=== PATIENT | female | born 1945 | race Caucasian/White ===

== ENCOUNTER 2020-10-14 07:20 | Day surgery (SDC) | payer MEDICARE, BC ==
[~2020-10-14 07:20] MED LIST: Lactated Ringers 1,000 ML IV SCH; Lidocaine 1%/Sod Bicarbonate in NS 8.4% 1 ML Syringe IDERM PRN; Sodium Chloride 0.9% 10 ML Syringe FLUSH PRN
--- NOTE | 2020-10-14 08:05 | PCM.PREANE ---
Preanesthetic Assessment - Procedure Proposed Procedure: colonoscopy - Anesthesia/Transfusion/Family Hx Anesthesia History: Prior Anesthesia Without Reaction Family History of Anesthesia Reaction: No Transfusion History: Unknown Intubation History: Unknown - Review of Systems General: No Symptoms Pulmonary: No Symptoms Cardiovascular: No Symptoms Gastrointestinal: Diarrhea Neurological: No Symptoms Other: Reports: None - Physical Assessment NPO Status Date: 10/14/20 NPO Status Time: 19:00 Height: 1.65 m Weight: 105 kg ASA Class: 3 Mental Status: Alert & Oriented x3 Dentition: Reports: Normal Dentition (permanent bridge ) ROM/Head Extension: Limited/Partial Lungs: Clear to Auscultation, Normal Respiratory Effort Cardiovascular: Regular Rate, Regular Rhythm - Allergies Allergies/Adverse Reactions: Allergies Allergy/AdvReac Type Severity Reaction Status Date / Time Sulfa (Sulfonamide Allergy Cannot Verified 10/14/20 07:56 Antibiotics) Remember tetanus and diphtheria Allergy Cannot Verified 10/14/20 07:56 toxoids Remember - Blood Blood Available: No - Anesthesia Plan Pre-Op Medication Ordered: None Beta Chrystal: Metoprolol - Acknowledgements Anesthesia Type Planned: MAC Pt an Appropriate Candidate for the Planned Anesthesia: Yes Alternatives and Risks of Anesthesia Discussed w Pt/Guardian: Yes Pt/Guardian Understands and Agrees with Anesthesia Plan: Yes PreAnesthesia Questionnaire HEENT History: Reports: Impaired Vision Cardiovascular History: Reports: High Cholesterol, Hypertension Respiratory History: Reports: None Gastrointestinal History: Reports: GERD Genitourinary History: Reports: None [employer] History: Reports: None Musculoskeletal History: Reports: Arthritis Neurological History: Reports: Other (See Below) Other Neuro History: cervical disc herniation Psychiatric History: Reports: None Endocrine/Metabolic History: Reports: Hypothyroidism, Obesity/BMI 30+ Hematologic History: Reports: Anemia Immunologic History: Reports: None Oncologic (Cancer) History: Reports: None Dermatologic History: Reports: Other (See Below) Other Dermatologic History: perianal abcess with I&D x2 - Infectious Disease History Infectious Disease History: Reports: None - Past Surgical History Head Surgeries/Procedures: Reports: None HEENT Surgical History: Reports: Tonsillectomy Cardiovascular Surgical History: Reports: None Respiratory Surgical History: Reports: None GI Surgical History: Reports: Colonoscopy Female Surgical History: Reports: None Male Surgical History: Reports: None Endocrine Surgical History: Reports: None Neurological Surgical History: Reports: None Musculoskeletal Surgical History: Reports: Other (See Below) Other Musculoskeletal Surgeries/Procedures:: neuroma excision Oncologic Surgical History: Reports: None Dermatological Surgical History: Reports: None - SUBSTANCE USE Tobacco Use Status *Q: Former Tobacco User Recreational Drug Use History: No - HOME MEDS Home Medications: Home Meds Aspirin 81 mg OP DAILY 10/13/20 [History] Calcium Carb/Vitamin D3/Vit K1 [Calcium + D Soft Chewable Tab] 1 tab PO DAILY 10/13/20 [History] Furosemide [Lasix] 40 mg PO DAILY 10/13/20 [History] Levothyroxine Sodium [Levothyroxine] 112 mcg PO DAILY 10/13/20 [History] Losartan [Cozaar] 100 mg PO DAILY 10/13/20 [History] Lysine 1,000 mg PO DAILY 10/13/20 [History] Magnesium Oxide 400 mg PO DAILY 10/13/20 [History] Metoprolol Succinate 50 mg PO DAILY 10/13/20 [History] Multivitamin 1 tab PO DAILY 10/13/20 [History] Niacin 500 mg PO DAILY 10/13/20 [History] Omeprazole Magnesium [Prilosec Otc] 20 mg PO DAILY 10/13/20 [History] Potassium Chloride 20 meq PO BID 10/13/20 [History] - CURRENT (IN HOUSE) MEDS Current Meds: Current Medications Lactated Ringer's (Ringers, Lactated) 1,000 mls @ 125 mls/hr IV ASDIRECTED SANJU Stop: 10/14/20 23:00 Lidocaine/Sodium Bicarbonate (Buffered Lidocaine 1% In Ns 8.4%) 0.25 ml IDERM ONETIME PRN PRN Reason: Prior to IV Start Stop: 10/14/20 18:00 Sodium Chloride (Saline Flush) 10 ml FLUSH ASDIRECTED PRN PRN Reason: Keep Vein Open Stop: 10/14/20 18:00
[2020-10-14] MEDS ORDERED: Propofol 200 MG/20 ML SDV ONE ×3 (08:39→08:44)
[2020-10-14] MEDS ORDERED: Lidocaine 1% 4 ML ONE (08:41)
[2020-10-14] MEDS ORDERED: Lactated Ringers 1,000 ML ONE (09:19)
--- NOTE | 2020-10-14 10:04 | PCM.OPNOTE ---
- General Post-Op/Procedure Note Date of Surgery/Procedure: 10/14/20 Operative Procedure(s): colonoscopy Findings: 1. Irregular mucosa throughout colon 2. Rectal polyp Pre Op Diagnosis: diarrhea Post-Op Diagnosis: same Anesthesia Technique: MAC Primary Surgeon: Sisi Baxter Anesthesia Provider: Patricia oRbb Pathology: 1. Ascending colon and transverse colon biopsies 2. Descending colon and sigmoid colon biopsies 3. Rectal polyp Fluid Replacement, Intraop: 1,000 Output, Urine Amount: 0 EBL in mLs: 0 Complications: none apparent Condition: Good
--- NOTE | 2020-10-14 10:04 | PCM48HPAN ---
Post Anesthesia Note - EVALUATION WITHIN 48HRS OF ANESTHETIC Vital Signs in Normal Range: Yes Patient Participated in Evaluation: Yes Respiratory Function Stable: Yes Airway Patent: Yes Cardiovascular Function Stable: Yes Hydration Status Stable: Yes Pain Control Satisfactory: Yes Nausea and Vomiting Control Satisfactory: Yes Mental Status Recovered: Yes Vital Signs: Last Vital Signs Temp 36.6 C 10/14/20 08:02 Pulse 90 10/14/20 08:02 Resp 16 10/14/20 08:02 BP 151/91 H 10/14/20 08:02 Pulse Ox 97 10/14/20 08:02
--- NOTE | 2020-10-14 10:06 | PCM48HPAN ---
Post Anesthesia Note - EVALUATION WITHIN 48HRS OF ANESTHETIC Vital Signs in Normal Range: Yes Patient Participated in Evaluation: Yes Respiratory Function Stable: Yes Airway Patent: Yes Cardiovascular Function Stable: Yes Hydration Status Stable: Yes Pain Control Satisfactory: Yes Nausea and Vomiting Control Satisfactory: Yes Mental Status Recovered: Yes Vital Signs: vitals 0937 144/59, 20 RR, 62 HR, 100% spo2, 97.1 Last Vital Signs Temp 36.6 C 10/14/20 08:02 Pulse 90 10/14/20 08:02 Resp 16 10/14/20 08:02 BP 151/91 H 10/14/20 08:02 Pulse Ox 97 10/14/20 08:02
--- NOTE | 2020-10-14 10:49 | PCM.PRNOTE ---
- Free Text/Narrative Note: Operative Report Date of Surgery/Procedure: October 14, 2020 Operative Procedure: Colonoscopy to cecum Pre Op Diagnosis: Diarrhea Post-Op Diagnosis: same Surgeon: Sisi Baxter MD Anesthesia Technique: MAC Anesthesia Provider: Patricia Robb CRNA IV Fluid Replacement, Intraop: 1000cc Output, Urine Amount: 0cc EBL : 0cc Findings: 1. Irregular mucosa throughout colon 1. Rectal polyp Specimens: 1. Ascending and transverse colon biopsies 2. Descending and sigmoid colon biopsies 3. Rectal polyp Indication: The patient is a 75 year-old lady who presented to the outpatient clinic. The patient has a history of unexplained diarrhea. We discussed the procedure of a diagnostic colonoscopy. Risks of bleeding and perforation were discussed, the patient understood and wished to proceed. Written and consent was obtained. Description of the procedure: The patient was brought to the endoscopy suite and placed in the left lateral decubitus position. Appropriate monitors were applied. The patient was given MAC anesthesia. An anorectal examination was performed, revealing no external abnormalities. The scope was placed into the rectum and advanced to cecum with some difficulty requiring external abdominal pressure. The patients cecum was entered, and the ileocecal valve was identified and normal. At this point, the scope was withdrawn, paying careful attention to the mucosa. The patient had excellent bowel prep, allowing for visualization of 95-100% of the mucosa. Edematous and friable was noted throughout the colon, the edema was more concentrated in the left colon. Biopsies were taken in the ascending, transverse, descending and sigmoid colon with a cold biopsy forceps. A 5mm p edunculated polyp was found in the rectum and removed with a cold biopsy forceps. The scope was retroflexed and no abnormalities were noted, except for some hemorrhoidal tissue. The scope was placed back in the lumen and the excess air was aspirated. The patient tolerated the procedure well. Complications: none apparent Condition: Good, transported to PACU in stable condition Sisi Baxter MD General Surgery
== END 2020-10-14 11:30 | disposition home or self-care (01) ==
LOC: JD.SDS 07:20
PROVIDERS: ATTEND Surgery
DX: D12.8 Benign neoplasm of rectum (principal); K52.832 Lymphocytic colitis; E78.00 Pure hypercholesterolemia, unspecified; I10 Essential (primary) hypertension; E03.9 Hypothyroidism, unspecified; E66.9 Obesity, unspecified; Z88.2 Allergy status to sulfonamides; Z87.891 Personal history of nicotine dependence; Z98.890 Other specified postprocedural states; Z79.82 Long term (current) use of aspirin; Z79.899 Other long term (current) drug therapy; Z68.38 Body mass index [BMI] 38.0-38.9, adult
CPT/HCPCS: 45380; 93005; J2001; J2704; J7120; 00811; 88305; 88342

== ENCOUNTER 2022-07-25 08:20 | Day surgery (SDC) | payer MEDICARE, BC ==
[~2022-07-25 08:20] MED LIST changes: +Acetaminophen 325 MG Tab PO SCH; +Morphine 8 MG, EPINEPHrine 0.3 MG, Cefuroxime 750 MG, Ketorolac 30 MG, Sodium Chloride ... PRN; +Pregabalin 25 MG Cap PO SCH; +Sodium Chloride 0.9% 10 ML Syringe FLUSH SCH; +oxyCODONE ER 10 MG TAB.ER PO SCH
[2022-07-25] MEDS ORDERED: Vancomycin 1 GM SDV ONE (08:39)
[2022-07-25] MEDS ORDERED: ceFAZolin 2 GM Vial ONE (08:48)
[2022-07-25] MEDS ORDERED: Lactated Ringers 1,000 ML ONE (08:48)
[2022-07-25] MEDS ORDERED: Propofol 200 MG/20 ML SDV ONE (08:49)
[2022-07-25] MEDS ORDERED: fentaNYL 100 MCG/2 ML SDV ONE (08:49)
[2022-07-25] MEDS ORDERED: Midazolam 1 MG/ML 2 ML SDV ONE (08:49)
[2022-07-25] MEDS ORDERED: Ropivacaine 0.5% 5 MG/ML 30 ML SDV ONE (08:58)
[2022-07-25] MEDS ORDERED: EPINEPHrine 1 MG/ML SDV ONE (08:58)
[2022-07-25] MEDS ORDERED: ePHEDrine 50 MG/ML SDV ONE (10:08)
[2022-07-25] MEDS ORDERED: Ondansetron 4 MG/2 ML SDV ONE (10:25)
[2022-07-25] MEDS ORDERED: Ondansetron 4 MG/2 ML SDV IVPUSH PRN (10:30)
[2022-07-25] MEDS ORDERED: HYDROmorphone 0.5 MG/0.5 ML Syringe IVPUSH PRN (10:30)
[2022-07-25] MEDS ORDERED: fentaNYL 100 MCG/2 ML SDV IVPUSH PRN (10:30)
[2022-07-25] MEDS ORDERED: oxyCODONE 5 MG Tab PO ONE (12:23)
== END 2022-07-25 15:31 | disposition home or self-care (01) ==
LOC: JD.SDS 08:20
PROVIDERS: ATTEND Orthopaedic Surgery
DX: M17.12 Unilateral primary osteoarthritis, left knee (principal); I10 Essential (primary) hypertension; K21.9 Gastro-esophageal reflux disease without esophagitis; E03.9 Hypothyroidism, unspecified; T14.8XXA Other injury of unspecified body region, initial encounter; E66.9 Obesity, unspecified; Z79.899 Other long term (current) drug therapy; Z88.2 Allergy status to sulfonamides; Z88.7 Allergy status to serum and vaccine; E78.00 Pure hypercholesterolemia, unspecified; Z98.890 Other specified postprocedural states; Z87.891 Personal history of nicotine dependence; Z79.890 Hormone replacement therapy; Z68.38 Body mass index [BMI] 38.0-38.9, adult
CPT/HCPCS: 0055T; 27447; 73560; 97110; 97116; 97161; A9270; C1713; C1776; J0171; J0690; J0697; J1885; J2250; J2270; J2405; J2704; J2795; J3010; J3370; J7120; 01402; 64450; 76942

== ENCOUNTER 2022-11-19 10:34 | Emergency (ER) | payer MEDICARE, BC ==
[2022-11-19] MEDS ORDERED: Furosemide 40 MG/4 ML VIAL IVPUSH ONE (11:00)
[2022-11-19] MEDS ORDERED: Sodium Chloride 0.9% 10 ML Syringe FLUSH PRN (11:21)
== END 2022-11-19 13:46 | disposition home or self-care (01) ==
LOC: JD.ED 10:34
DX: J45.51 Severe persistent asthma with (acute) exacerbation (principal); I11.0 Hypertensive heart disease with heart failure; I50.9 Heart failure, unspecified; E03.9 Hypothyroidism, unspecified; E66.9 Obesity, unspecified; Z68.36 Body mass index [BMI] 36.0-36.9, adult; Z88.2 Allergy status to sulfonamides; Z88.7 Allergy status to serum and vaccine; Z79.899 Other long term (current) drug therapy; Z79.82 Long term (current) use of aspirin; Z87.891 Personal history of nicotine dependence
CPT/HCPCS: 36415; 71045; 80053; 81001; 82553; 83735; 83880; 84484; 85025; 86140; 93005; 96374; 99285; J1940; J3490

== ENCOUNTER 2024-04-24 09:30 | Emergency (ER) | payer MEDICARE, OTHER ==
[2024-04-24] MEDS: Sodium Chloride 0.9% 10 ML Syringe FLUSH PRN (10:05)
[2024-04-24] MEDS: methylPREDNISolone Sodium Succinate 125 MG/2 ML SDV IVPUSH ONE (10:05)
[2024-04-24 10:12] LABS: BASOPHILS ABSOLUTE AUTO 0.1 K/mm3 (0.0-0.2); BASOPHILS PERCENT AUTO 0.8 % (0.0-1.0); EOSINOPHILS ABSOLUTE AUTO 0.5 K/mm3 (0.0-0.4); EOSINOPHILS PERCENT AUTO 4.1 % (0.0-6.0); HEMATOCRIT 43.2 % (37.0-47.0); HEMOGLOBIN 14.3 gm/dl (12.0-16.0); IMMATURE GRAN ABSOLUTE AUTO 0.03 K/mm3 (0.00-0.05); IMMATURE GRAN PERCENT AUTO 0.3 % (0.0-0.4); LYMPHOCYTES ABSOLUTE AUTO 1.6 K/mm3 (1.0-4.8); LYMPHOCYTES PERCENT AUTO 13.7 % (24.0-44.0); MEAN CORPUSCULAR HEMOGLOBIN 31.6 pg (28.0-32.0); MEAN CORPUSCULAR HGB CONC 33.1 g/dl (32.0-36.0); MEAN CORPUSCULAR VOLUME 95.4 fl (83.0-99.0); MEAN PLATELET VOLUME 9.8 fl (9.4-12.3); MONOCYTES ABSOLUTE AUTO 0.6 K/mm3 (0.0-0.8); MONOCYTES PERCENT AUTO 5.1 % (0.0-8.0); NEUTROPHILS ABSOLUTE AUTO 8.6 K/mm3 (1.8-7.7); PLATELET COUNT,PLT 229 K/mm3 (150-400); RED BLOOD CELL COUNT 4.53 M/mm3 (4.10-5.30); WHITE BLOOD CELL COUNT,WBC 11.28 K/mm3 (3.9-11.3)
[2024-04-24] MEDS: Albuterol/Ipratropium 3.0-0.5 MG/3 ML Neb Soln NEB ONE (10:26)
[2024-04-24 10:40] LABS: ALBUMIN 4.1 g/dl (3.4-5.0); ANION GAP 12.7 (5-15); BILIRUBIN TOTAL 0.7 mg/dL (0.2-1.0); BUN/CREATININE RATIO 11.4 (14-18); C-REACTIVE PROTEIN 0.42 mg/dL (<0.30); CALCIUM 9.3 mg/dL (8.5-10.1); CREATININE 1.4 mg/dL (0.55-1.02); EST CRCL DRUG DOSING (CG) 28.6 mL/min; POTASSIUM,K 3.7 mEq/L (3.5-5.1); PROTEIN TOTAL,TP 8.1 g/dl (6.4-8.2)
== END 2024-04-24 12:20 | disposition home or self-care (01) ==
LOC: JD.ED 09:30
DX: J45.901 Unspecified asthma with (acute) exacerbation (principal); I10 Essential (primary) hypertension; E78.00 Pure hypercholesterolemia, unspecified; K21.9 Gastro-esophageal reflux disease without esophagitis; Z87.891 Personal history of nicotine dependence; Z88.2 Allergy status to sulfonamides; Z88.7 Allergy status to serum and vaccine; Z79.82 Long term (current) use of aspirin; Z79.899 Other long term (current) drug therapy; Z79.890 Hormone replacement therapy
CPT/HCPCS: 36415; 71045; 80053; 85025; 86140; 94640; 96374; 99285; J2919; J3490; J7620-GY